=== PATIENT | male | born 1970 | race Caucasian/White ===

== ENCOUNTER 2021-09-15 13:33 | Emergency (ER) | payer OTHER, MEDICARE ==
[~2021-09-15] VITALS: Ht 180.3 cm; Wt 244.0 kg
[2021-09-15] MEDS ORDERED: morphine INJ 10 MG/ML 1ML (SYR OR VIAL) IVP STA (13:48)
[2021-09-15] MEDS ORDERED: LACTATED RINGERS 1,000 ML IV ONE (14:00)
[2021-09-15] MEDS ORDERED: ETOMIDATE IV SOLN 20 MG/10 ML VIAL IV ONE (14:00)
[2021-09-15 14:27] LABS: BASOPHILS % (AUTO) 0 % (0-10); HEMOGLOBIN 15.5 g/dL (13.3-17.7)
[2021-09-15 14:30] LABS: EOSINOPHILS # (AUTO) 0.1 10^3/uL (0.0-0.3); EOSINOPHILS % (AUTO) 2 % (0-10); HEMATOCRIT 46 % (40-54); LYMPHOCYTES # (AUTO) 1.1 10^3/uL (1.0-4.0); LYMPHOCYTES % (AUTO) 16 % (12-44); MEAN CORPUSCULAR HEMOGLOBIN 31 pg (25-34); MEAN CORPUSCULAR HGB CONC 34 g/dL (32-36); MEAN CORPUSCULAR VOLUME 91 fL (80-99); MEAN PLATELET VOLUME 10.3 fL (9.0-12.2); MONOCYTES # (AUTO) 0.5 10^3/uL (0.0-1.0); MONOCYTES % (AUTO) 7 % (0-12); NEUTROPHILS # (AUTO) 5.2 10^3/uL (1.8-7.8); NEUTROPHILS % (AUTO) 75 % (42-75); PLATELET COUNT 118 10^3/uL (130-400)
[2021-09-15 14:35] LABS: ALBUMIN 3.9 GM/DL (3.2-4.5)
[2021-09-15 14:36] LABS: CALCIUM 9.1 MG/DL (8.5-10.1)
[2021-09-15 14:38] LABS: TOTAL PROTEIN 7.2 GM/DL (6.4-8.2)
[2021-09-15 14:41] LABS: CREATININE SERUM 0.85 MG/DL (0.60-1.30)
--- NOTE | 2021-09-15 14:43 | Diagnostic Imaging Report ---
CLINICAL HISTORY: Fall with twisting injury. Left ankle pain and deformity. COMPARISON: None. TECHNIQUE: Two views of the left ankle. FINDINGS: Fracture dislocation is visualized involving the left ankle. There is lateral and posterior displacement of the talus relative to the tibial plafond. Likely chip fracture is seen involving the medial malleolus. No focal osseous lesions. There is surrounding soft tissue edema. IMPRESSION: 1. Fracture dislocation in the left ankle with posterolateral displacement of the talus and likely chip fracture of the medial malleolus. Dictated by: Dictated on workstation # [id number]
[2021-09-15] MEDS ORDERED: OXYC1TAB87 PO (15:50)
--- NOTE | 2021-09-15 15:52 | ED Lower Extremity ---
General Chief Complaint: Lower Extremity Stated Complaint: R FOOT DEFORMITY Nursing Triage Note: pt to room by [facility]. ems reports pt was getting in his car, his left leg gave out, and left ankle got caught under the vehicle and between concrete curb. ems reportd pt was given 100fentanyl, 4zofran, and 500 cc iv fluid. pulses found and marked during triage Source: patient Exam Limitations: no limitations History of Present Illness Date Seen by Provider: Sep 18, 2021 Time Seen by Provider: 13:35 Initial Comments This 51-year-old gentleman presents to the emergency room via EMS after fracturing and/or dislocating his left ankle. He was stepping up into the chain saw driver seat of his vehicle when his left leg "gave out" on him. He reports having some issues with sciatica affecting his left leg causing it to occasi onally "give out". When this occurred, he came down onto the left ankle, rolling it against the curb. He has obvious disfigurement due to his injury. He maintains posterior pedal pulse. Sensation and movement of the toes is intact. Patient was greater than 500 pounds. He was given fentanyl 100 mcg, Zofran 4 mg, and normal saline 500 mL by EMS. Allergies and Home Medications Allergies Coded Allergies: No Known Drug Allergies (Unverified , 09/15/21) Patient Home Medication List Home Medication List Reviewed: Yes Oxycodone HCl/Acetaminophen (Percocet 5-325 mg Tablet) 1 Each Tablet, 1 TAB PO Q4H PRN for PAIN-MODERATE (5-7) Prescribed by: BRANDON OROURKE on 09/15/21 [id number] Review of Systems Constitutional: see HPI EENTM: no symptoms reported Respiratory: no symptoms reported Cardiovascular: no symptoms reported Gastrointestinal: no symptoms reported Genitourinary: no symptoms reported Musculoskeletal: see HPI Skin: no symptoms reported Psychiatric/Neurological: See HPI Past Xsllked-Czmnpz-Gooxgz Hx Patient Social History Tobacco Use?: No Substance use?: No Alcohol Use?: No Past Medical History Surgeries: No Respiratory: No Cardiac: Yes High Cholesterol, Hypertension Genitourinary: No Gastrointestinal: No Musculoskeletal: Yes Endocrine: No HEENT: No Cancer: No Psychosocial: No Physical Exam Vital Signs Vital Signs - First Documented 09/15/21 09/15/21 13:39 15:00 Temp 36.6 Pulse 60 Resp 15 B/P (MAP) 114/78 (90) Pulse Ox 96 O2 Delivery Room Air Capillary Refill : Height, Weight, BMI Height: '" Weight: lbs. oz. kg; 75.00 BMI Method: General Appearance: WD/WN, no apparent distress, other (Morbidly obese) HEENT: PERRL/EOMI, normal ENT inspection, pharynx normal Neck: normal inspection Cardiovascular: regular rate, rhythm, no murmur Respiratory: lungs clear, normal breath sounds, no respiratory distress Gastrointestinal: non tender, soft Legs: bilateral leg non-tender, bilateral leg normal inspection, bilateral leg normal range of motion, bilateral leg no evidence of injury Knees: bilateral knee non-tender, bilateral knee normal inspection, bilateral knee normal range of motion, bilateral knee no evidence of injury Ankles: right ankle non-tender, right ankle normal inspection; left ankle bone tenderness, left ankle deformity, left ankle limited range of motion, left ankle pain, left ankle swelling, left ankle other (aparent posterior dislocation at the ankle) Feet: bilateral foot non-tender, bilateral foot normal inspection, bilateral foot normal range of motion, bilateral foot no evidence of injury Neurologic/Tendon: normal sensation 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 Ack. Understanding Breath Sounds per Auscultation: Clear Heart Sounds per Auscultation: Regular Airway Exam: Mouth opens >2 fingers Splinting and Joint Reduction : Pre-Proc Neuro Vasc Exam: normal Post-Proc Neuro Vasc Exam: normal post joint reduction film: joint reduced Progress After informed consent reduction was performed under conscious sedation. Etomidate 20 mg and morphine 5 mg were used for the sedation. Ankle was easily reduced. A three-way splint was applied. The splinting was very difficult due to patient's body habitus and the weight of the leg. Postreduction films showed excellent positioning of the reduction. Patient felt better after the ankle was reduced and splinted. Hand-Made Type: fiberglass Splint Application: Short Leg (Three-way splint) Progress/Results/Core Measures Results/Orders Lab Results Laboratory Tests Test 09/15/21 14:16 Range/Units White Blood Count 7.0 4.3-11.0 10^3/uL Red Blood Count 5.01 4.30-5.52 10^6/uL Hemoglobin 15.5 13.3-17.7 g/dL Hematocrit 46 40-54 % Mean Corpuscular Volume 91 80-99 fL Mean Corpuscular Hemoglobin 31 25-34 pg Mean Corpuscular Hemoglobin Concent 34 32-36 g/dL Red Cell Distribution Width 13.6 10.0-14.5 % Platelet Count 118 L 130-400 10^3/uL Mean Platelet Volume 10.3 9.0-12.2 fL Immature Granulocyte % (Auto) 1 % Neutrophils (%) (Auto) 75 42-75 % Lymphocytes (%) (Auto) 16 12-44 % Monocytes (%) (Auto) 7 0-12 % Eosinophils (%) (Auto) 2 0-10 % Basophils (%) (Auto) 0 0-10 % Neutrophils # (Auto) 5.2 1.8-7.8 10^3/uL Lymphocytes # (Auto) 1.1 1.0-4.0 10^3/uL Monocytes # (Auto) 0.5 0.0-1.0 10^3/uL Eosinophils # (Auto) 0.1 0.0-0.3 10^3/uL Basophils # (Auto) 0.0 0.0-0.1 10^3/uL Immature Granulocyte # (Auto) 0.0 0.0-0.1 10^3/uL Percent Immature Platelet Fraction 4.7 0.0-7.6 % Sodium Level 139 135-145 MMOL/L Potassium Level 4.0 3.6-5.0 MMOL/L Chloride Level 104 98-107 MMOL/L Carbon Dioxide Level 21 21-32 MMOL/L Anion Gap 14 5-14 MMOL/L Blood Urea Nitrogen 15 7-18 MG/DL Creatinine 0.85 0.60-1.30 MG/DL Estimat Glomerular Filtration Rate 104 BUN/Creatinine Ratio 18 Glucose Level 133 H 70-105 MG/DL Calcium Level 9.1 8.5-10.1 MG/DL Corrected Calcium 9.2 8.5-10.1 MG/DL Total Bilirubin 1.0 0.1-1.0 MG/DL Aspartate Amino Transf (AST/SGOT) 24 5-34 U/L Alanine Aminotransferase (ALT/SGPT) 15 0-55 U/L Alkaline Phosphatase 53 40-136 U/L Total Protein 7.2 6.4-8.2 GM/DL Albumin 3.9 3.2-4.5 GM/DL My Orders Orders - BRANDON SHEARER MD Ankle, Left, 2 Views (09/15/21 13:47) Cbc With Automated Diff (09/15/21 13:48) Comprehensive Metabolic Panel (09/15/21 13:48) Monitor-Rhythm Ecg Trace Only (09/15/21 13:48) O2 (09/15/21 13:48) Etomidate Injection (Amidate Injection) (09/15/21 14:00) Morphine Injection (Morphine Injection (09/15/21 13:48) Lactated Ringers (Lr 1000 Ml Iv Solution (09/15/21 14:00) Ankle, Left, 3 Views (09/15/21 15:27) Crutches (09/15/21 16:11) Medications Given in ED Vital Signs/I&O 09/15/21 09/15/21 09/15/21 09/15/21 13:39 15:00 15:06 15:15 Temp 36.6 Pulse 60 55 59 Resp 15 12 15 B/P (MAP) 114/78 (90) 119/74 148/83 Pulse Ox 96 95 96 O2 Delivery Room Air Room Air Room Air 09/15/21 09/15/21 15:36 16:52 Pulse 57 64 Resp 18 14 B/P (MAP) 121/86 120/76 Pulse Ox 96 97 O2 Delivery Room Air Blood Pressure Mean: 90 Progress Progress Note : Progress Note Posterior ankle fracture as well as dislocation of the ankle noted on x-rays. Reduction of the dislocation was performed with conscious sedation. Patient jocelin erated the procedure well. Three-way splint was applied. Pain was controlled with opioids. Mobility was a significant barrier to overcome for this patient. He required assistance from EMS and multiple staff members to get into his vehicle. Patient stated he had strong medicine at home and motorized scooter that he can get around on. He was dispensed crutches to help him balance and support. He was advised that his weight exceeded the recommended limits of the crutches and to not rely on the crutches solely for supporting his body weight. See discharge instructions for further discussion. Departure Impression Primary Impression: Dislocation of left ankle joint Qualified Codes: S93.05XA - Dislocation of left ankle joint, initial encounter Additional Impressions: Ankle fracture, left Qualified Codes: S82.892A - Other fracture of left lower leg, initial encounter for closed fracture Extreme obesity Disposition: HOME, SELF-CARE Condition: Improved Departure-Patient Inst. Decision time for Depature: 15:54 Referrals: NO,LOCAL PHYSICIAN (PCP) Primary Care Physician FARTUN WHITTINGTON MD Patient Instructions: Ankle Dislocation, Ankle Fracture ED, Procedural Sedation, Adult ED Add. Discharge Instructions: Do not bear weight on the left foot or leg. Ambulate with crutches or use a wheelchair. Follow-up with Dr. Whittington or the orthopedist of your choice is soon as possible. Please call this afternoon or Saturday morning to make an appointment. Use Percocet as prescribed for pain control. Avoid use of NSAID medications such as ibuprofen or naproxen as this may delay bone healing. You may wish to use a stool softener such as Colace while taking Percocet to prevent constipation. Keep the splint clean and dry. Call with questions or concerns. Return to the ER if you have worsening symptoms or need reevaluation. All discharge instructions reviewed with patient and/or family. Voiced understanding. Scripts Oxycodone HCl/Acetaminophen (Percocet 5-325 mg Tablet) 1 Each Tablet 1 TAB PO Q4H PRN for PAIN-MODERATE (5-7) MDD 6 TABS, #30 TAB Prov: BRANDON SHEARER MD 09/15/21 BRANDON SHEARER MD Sep 15, 2021 15:52
--- NOTE | 2021-09-15 16:08 | Diagnostic Imaging Report ---
CLINICAL HISTORY: Post reduction. Left ankle dislocation. COMPARISON: Left ankle radiographs performed earlier the same date. TECHNIQUE: Three views of the left ankle. FINDINGS: There has been interval closed reduction of the dislocated left talotibial joint. A fracture is seen involving the posterior malleolus. There is minimal displacement. There is surrounding soft tissue edema. Overlying cast material has been placed. IMPRESSION: 1. Successful closed reduction of the dislocated left tibiotalar joint. Associated minimally displaced fracture is seen involving the posterior malleolus. Dictated by: Dictated on workstation # [id number]
[2021-09-15 16:52] VITALS: BP 120/76
== END 2021-09-15 16:55 | disposition home or self-care (01) ==
LOC: EDUNIT# 13:33 → ER 13:35
DX: S93.05XA Dislocation of left ankle joint, initial encounter (principal); E66.9 Obesity, unspecified; Z68.45 Body mass index [BMI] 70 or greater, adult; Z28.310 Unvaccinated for COVID-19; V48.9XXA Unspecified car occupant injured in noncollision transport accident in traffic accident, initial encounter; Y92.410 Unspecified street and highway as the place of occurrence of the external cause
CPT/HCPCS: 27842; 29515; 36415; 73600; 73610; 80053; 85025; 93041; 96361; 96374; 96375